=== PATIENT | male | born 1990 | race Caucasian/White ===

== ENCOUNTER 2025-08-15 12:08 | Emergency (ER) | payer SELFPAY ==
[2025-08-15 12:16] VITALS: BP 136/82
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
--- NOTE | 2025-08-15 13:22 | EDRN ---
Called for pt in waiting room, was told he might be with sig other who is also a pt and is out of dept.
== END 2025-08-15 17:06 | disposition home or self-care (01) ==
LOC: EMR 12:08
PROVIDERS: EMERGENCY PHYSICIAN Emergency Medicine; FAMILY PHYSICIAN Family Medicine
DX: S16.1XXA Strain of muscle, fascia and tendon at neck level, initial encounter (principal); F17.200 Nicotine dependence, unspecified, uncomplicated; V43.52XA Car driver injured in collision with other type car in traffic accident, initial encounter; Y92.410 Unspecified street and highway as the place of occurrence of the external cause
CPT/HCPCS: 99282